=== PATIENT | female | born 1950 | race Caucasian/White ===

== ENCOUNTER 2018-04-27 06:00 | Inpatient (IN) | payer MEDICARE, OTHER ==
[2018-04-21 14:08] LABS: BASOPHILS % (AUTO) 0.5 % (0-1); EOSINOPHILS # (AUTO) 0.2 X10'3 (0-0.9); EOSINOPHILS % (AUTO) 2.4 % (0-6); LYMPHOCYTES # (AUTO) 1.8 X10'3 (1.1-4.8); LYMPHOCYTES % (AUTO) 22.1 % (21-51); MEAN CORPUSCULAR HEMOGLOBIN 29.6 PG (27.0-31.0); MEAN CORPUSCULAR HGB CONC 33.8 % (33.0-36.5); MEAN CORPUSCULAR VOLUME 87.7 FL (78-98); MEAN PLATELET VOLUME 7.6 FL (7.4-10.4); MONOCYTES # (AUTO) 0.5 X10'3 (0-0.9); MONOCYTES % (AUTO) 6.5 % (2-12); NEUTROPHILS # (AUTO) 5.6 X10'3 (1.8-7.7); NEUTROPHILS % (AUTO) 68.5 % (42-75); PRE OP HEMATOCRIT 45.2 % (35.0-45.0); PRE OP HEMOGLOBIN 15.3 g/dL (12.0-16.0); PRE OP PLATELET COUNT 316 X10'3 (140-440); RED BLOOD COUNT 5.16 X10'6 (4.20-5.60); RED CELL DISTRIBUTION WIDTH 13.7 % (11.5-14.5)
[2018-04-21 14:09] LABS: CLARITY,URINE CLEAR (Clear); COLOR,URINE YELLOW (Yellow); GLUCOSE, URINE NEGATIVE (Neg); KETONES,URINE TRACE mg/dl (Neg); LEUKOCYTE ESTERASE ,URINE TRACE (Neg); NITRITES, URINE NEGATIVE (Neg); OCCULT BLOOD,URINE NEGATIVE (Neg); PROTEIN,URINE NEGATIVE (Neg)
[2018-04-21 14:16] LABS: UA COLLECTION TYPE NON-SPECIFIED
[2018-04-21 14:17] LABS: BACTERIA,URINE FEW /HPF (Neg); MUCUS STRANDS FEW /LPF (Neg); RBC,URINE 0-2 /HPF (0-2); SQUAMOUS EPITHELIAL CELL,UR FEW /LPF (FEW); WBC,URINE 0-4 /HPF (0-4)
[2018-04-21 14:18] LABS: PRE OP PROTIME 9.9 SECONDS (9.0-12.0)
[2018-04-21 14:23] LABS: ALBUMIN 4.2 G/DL (3.4-5.0); ALBUMIN/GLOBULIN RATIO 1.1 (1.1-1.5); ALKALINE PHOSPHATASE 119 IU/L (46-116); BLOOD UREA NITROGEN 17 MG/DL (7-18); CALCIUM 8.8 MG/DL (8.5-10.1); CHLORIDE 101 MMOL/L (99-107); PRE OP ALT 24 U/L (30-65); PRE OP ANION GAP 11 (8-16); PRE OP AST 17 U/L (10-37); PRE OP BILIRUB, TOTAL 0.6 MG/DL (0.0-1.0); PRE OP GLUCOSE 108 MG/DL (70-104); PRE OP POTASSIUM 3.7 MMOL/L (3.4-5.1); PRE OP SODIUM 138 MMOL/L (135-145); TOTAL CARBON DIOXIDE 26.1 MMOL/L (24-32); TOTAL PROTEIN 8.2 G/DL (6.4-8.2); eGFR 55 ML/MIN
[~2018-04-27] VITALS: Ht 160 cm; Wt 83.0 kg
[2018-04-27] VITALS (23 sets, daily range): BP systolic 98–149; BP diastolic 55–86
[~2018-04-27 06:00] MED LIST: AMLO2.5T2 PO; Cefazolin 2GM/50ML dext iso,osmotic IVPB IV ONE; ESCI20TA38 PO; LOSA1TAB9 PO; OMEP40CA37 PO; acetaminophen 325mg tablet PO ONE; celeCOXIB 100mg capsule PO ONE; famotidine 20mg tablet PO ONE; gabapentin 300mg capsule PO ONE; metoclopramide 5 mg/ml inj IV ONE; oxyCODONE SR 10mg (sust. release) tab -2 tabs (20mg) PO ONE; ringers solution, lacted 1,000 ML IV SCH; tranexamic acid inj. 1,000 MG in normal saline 100ml IV soln 90 ML IV ONE; vancomycin inj 1,500 MG in normal saline 300ml IV soln IV ONE
[2018-04-27] MEDS ORDERED: ondansetron/PF 4mg/2ml inj IV PRN ×3 (07:00→10:50)
[2018-04-27] MEDS ORDERED: HYDROmorphone 1 mg/ml syringe IV PRN ×2 (07:00)
[2018-04-27] MEDS ORDERED: acetaminophen 325mg tablet PO PRN (07:00)
[2018-04-27] MEDS ORDERED: diphenhydrAMINE 25mg capsule PO PRN (07:00)
[2018-04-27] MEDS ORDERED: bisacodyl 10mg suppository rectal RC PRN (07:00)
[2018-04-27] MEDS ORDERED: magnesium hydroxide 30ml (MOM) UD suspension PO PRN (07:00)
[2018-04-27] MEDS ORDERED: HYDROCHLOROTHIAZIDE PO SCH (08:00)
[2018-04-27] MEDS ORDERED: LOSARTAN PO SCH (08:00)
[2018-04-27] MEDS ORDERED: ketorolac trometh. 30mg/ml inj. ONE (08:06)
[2018-04-27] MEDS ORDERED: epiNEPHrine 1 mg/ml inj ONE (08:06)
[2018-04-27] MEDS ORDERED: vancomycin 1,000mg inj ONE (08:06)
[2018-04-27] MEDS ORDERED: ROPIVAcaine 0.5% (5mg/ml) 30ml vial ONE (08:07)
[2018-04-27] MEDS ORDERED: cloNIDine hcl/PF 100mcg/ml inj ONE ×2 (08:07→08:39)
[2018-04-27] MEDS ORDERED: tetracaine 1% (10mg/ml) pres. free inj. ONE (08:39)
[2018-04-27] MEDS ORDERED: morphine sulfate /PF 0.5 MG/ML 10mL ampul ONE (08:44)
[2018-04-27] MEDS ORDERED: MIDAZolam 5mg/5ml vial ONE (08:44)
[2018-04-27] MEDS ORDERED: fentaNYL/PF 50MCG/1 ML 2ML syringe ONE (08:44)
[2018-04-27] MEDS ORDERED: dexamethasone sod phosphate 10mg/ml inj ONE (09:02)
[2018-04-27] MEDS ORDERED: propofol inj 20 ML IV ONE (09:40)
[2018-04-27] MEDS ORDERED: LIDOcaine 1%/PF 5ML 10 MG/ML VIAL ONE (09:40)
[2018-04-27] MEDS ORDERED: ringers solution, lacted 1,000 ML IV SCH (10:48)
[2018-04-27] MEDS ORDERED: naloxone 2mg/2ml inj 1.6 MG in normal saline 500ml IV soln 500 ML IV PRN (10:48)
[2018-04-27] MEDS ORDERED: HYDROmorphone inj. 0.5 MG/0.5 ML DISP.SYRIN IV PRN ×2 (10:50)
[2018-04-27] MEDS ORDERED: diphenhydrAMINE 50 mg/ml inj IV PRN (10:50)
[2018-04-27] MEDS ORDERED: furosemide 40mg/4ml inj ONE (10:58)
[2018-04-27] MEDS ORDERED: diphenhydrAMINE 50 mg/ml inj ONE (10:59)
[2018-04-27] MEDS ORDERED: ipratropium/albuterol 3ml nebule IH ONE (12:00)
[2018-04-27 12:50] LABS: ABG BASE EXCESS -3.8 mmol/L (-2.0-3.0); ABG OXYGEN SATURATION 89.8 % (95-98); ABG PCO2 (T) 55.4 mmHg (32.0-45.0); ABG PH (T) 7.255 (7.350-7.450); ABG PO2 (T) 66.8 mmHg (83-108); FCOHb 0.3 % (0.5-1.5); FLOW 5 L/min; FMetHb 0.3 % (0.3-1.12); FO2Hb 89.3 % (94-100)
[2018-04-27] MEDS ORDERED: naloxone 2mg/2ml inj 2 MG in normal saline 500ml IV soln 498 ML IV SCH (12:54)
[2018-04-27] MEDS: potassium cl 20mEq in 1/2 NS 1,000 ML IV SCH (14:23)
[2018-04-27] MEDS: ipratropium/albuterol 3ml nebule IH SCH ×3 (15:27→23:05)
[2018-04-27] MEDS: cefazolin/dext.iso 2gm/50ml 50 ML IV SCH (15:58)
[2018-04-27] MEDS: gabapentin 300mg capsule PO SCH (20:32)
[2018-04-27] MEDS: sennosides 8.6mg tablet PO SCH (20:33)
[2018-04-27] MEDS: ascorbic acid 500mg tablet PO SCH (20:33)
[2018-04-28] MEDS: cefazolin/dext.iso 2gm/50ml 50 ML IV SCH (00:06)
[2018-04-28] MEDS: potassium cl 20mEq in 1/2 NS 1,000 ML IV SCH ×3 (00:13→16:41)
[2018-04-28 02:00] VITALS: BP 116/69
[2018-04-28] MEDS: ipratropium/albuterol 3ml nebule IH SCH (02:44)
[2018-04-28] MEDS: HYDROcodone/acetaminophen 10/325mg tab PO PRN ×5 (03:36→19:24)
[2018-04-28 05:09] LABS: BASOPHILS % (AUTO) 0.3 % (0-1); EOSINOPHILS # (AUTO) 0.2 X10'3 (0-0.9); EOSINOPHILS % (AUTO) 1.6 % (0-6); HEMATOCRIT 32.9 % (35.0-45.0); HEMOGLOBIN 11.1 g/dl (12.0-16.0); LYMPHOCYTES # (AUTO) 0.6 X10'3 (1.1-4.8); LYMPHOCYTES % (AUTO) 5.3 % (21-51); MEAN CORPUSCULAR HEMOGLOBIN 29.5 PG (27.0-31.0); MEAN CORPUSCULAR HGB CONC 33.8 % (33.0-36.5); MEAN CORPUSCULAR VOLUME 87.2 FL (78-98); MEAN PLATELET VOLUME 7.9 FL (7.4-10.4); MONOCYTES # (AUTO) 0.6 X10'3 (0-0.9); MONOCYTES % (AUTO) 5.4 % (2-12); NEUTROPHILS # (AUTO) 9.4 X10'3 (1.8-7.7); NEUTROPHILS % (AUTO) 87.4 % (42-75); PLATELET COUNT 227 X10'3 (140-440); RED BLOOD COUNT 3.78 X10'6 (4.20-5.60); RED CELL DISTRIBUTION WIDTH 13.4 % (11.5-14.5); WHITE BLOOD COUNT 10.8 X10'3 (4.5-11.0)
[2018-04-28 05:41] LABS: ANION GAP 9 (8-16); CHLORIDE 105 MMOL/L (99-107); POTASSIUM 3.5 MMOL/L (3.5-5.1); SODIUM 138 MMOL/L (135-145); TOTAL CARBON DIOXIDE 24.1 MMOL/L (24-32)
[2018-04-28 06:00] VITALS: BP 114/63
[2018-04-28] MEDS: aspirin 325mg tablet PO SCH (07:47)
[2018-04-28] MEDS: multivitamins, therapeutics tablet PO SCH (07:47)
[2018-04-28] MEDS: ascorbic acid 500mg tablet PO SCH ×2 (07:48→20:42)
[2018-04-28] MEDS: amLODIPine 2.5mg tablet PO SCH (07:49)
[2018-04-28] MEDS: gabapentin 300mg capsule PO SCH ×3 (07:50→20:41)
[2018-04-28] MEDS: pantoprazole 40mg Tablet.DR PO SCH (07:52)
[2018-04-28] MEDS: citalopram 20mg tablet PO SCH (07:52)
[2018-04-28] MEDS ORDERED: HYDROchlorothiazide 12.5mg capsule PO SCH (08:00)
[2018-04-28] MEDS ORDERED: losartan 50mg tablet PO SCH (08:00)
[2018-04-28] MEDS: HYDROchlorothiazide 12.5mg capsule PO SCH (08:44)
[2018-04-28] MEDS: losartan 50mg tablet PO SCH (08:46)
[2018-04-28] MEDS: diphenhydrAMINE 25mg capsule PO PRN ×2 (08:50→20:47)
[2018-04-28 10:00] VITALS: BP 123/73
[2018-04-28 14:00] VITALS: BP 118/55
[2018-04-28 18:00] VITALS: BP 142/55
[2018-04-28] MEDS: sennosides 8.6mg tablet PO SCH (20:42)
[2018-04-28] MEDS: celeCOXIB 100mg capsule PO SCH (20:42)
[2018-04-28 22:00] VITALS: BP 108/53
[2018-04-29 02:00] VITALS: BP 108/53
[2018-04-29] MEDS: HYDROcodone/acetaminophen 10/325mg tab PO PRN ×4 (05:11→20:56)
[2018-04-29 06:00] VITALS: BP 105/52
[2018-04-29 06:03] LABS: BASOPHILS % (AUTO) 0.4 % (0-1); EOSINOPHILS # (AUTO) 0.8 X10'3 (0-0.9); EOSINOPHILS % (AUTO) 7.6 % (0-6); HEMATOCRIT 33.4 % (35.0-45.0); HEMOGLOBIN 11.3 g/dl (12.0-16.0); LYMPHOCYTES # (AUTO) 1.5 X10'3 (1.1-4.8); LYMPHOCYTES % (AUTO) 15.2 % (21-51); MEAN CORPUSCULAR HEMOGLOBIN 29.7 PG (27.0-31.0); MEAN CORPUSCULAR HGB CONC 33.9 % (33.0-36.5); MEAN CORPUSCULAR VOLUME 87.6 FL (78-98); MONOCYTES # (AUTO) 0.7 X10'3 (0-0.9); MONOCYTES % (AUTO) 7.1 % (2-12); NEUTROPHILS % (AUTO) 69.7 % (42-75); PLATELET COUNT 221 X10'3 (140-440); RED BLOOD COUNT 3.81 X10'6 (4.20-5.60); RED CELL DISTRIBUTION WIDTH 13.8 % (11.5-14.5)
[2018-04-29] MEDS: amLODIPine 2.5mg tablet PO SCH ×2 (08:00→08:01)
[2018-04-29] MEDS: potassium cl 20mEq in 1/2 NS 1,000 ML IV SCH (08:00)
[2018-04-29] MEDS: losartan 50mg tablet PO SCH ×2 (08:00→08:01)
[2018-04-29] MEDS: HYDROchlorothiazide 12.5mg capsule PO SCH ×2 (08:00→08:01)
[2018-04-29] MEDS: multivitamins, therapeutics tablet PO SCH (08:01)
[2018-04-29] MEDS: aspirin 325mg tablet PO SCH (08:01)
[2018-04-29] MEDS: citalopram 20mg tablet PO SCH (08:01)
[2018-04-29] MEDS: celeCOXIB 100mg capsule PO SCH ×2 (08:02→20:55)
[2018-04-29] MEDS: gabapentin 300mg capsule PO SCH ×3 (08:02→20:55)
[2018-04-29] MEDS: ascorbic acid 500mg tablet PO SCH ×2 (08:02→20:55)
[2018-04-29] MEDS: pantoprazole 40mg Tablet.DR PO SCH (08:02)
[2018-04-29 10:00] VITALS: BP 115/54
[2018-04-29 18:00] VITALS: BP 104/58
[2018-04-29] MEDS: sennosides 8.6mg tablet PO SCH (20:55)
[2018-04-29 22:00] VITALS: BP 129/56
[2018-04-30] MEDS: HYDROcodone/acetaminophen 10/325mg tab PO PRN ×2 (04:42→10:07)
[2018-04-30 06:00] VITALS: BP 97/52
[2018-04-30] MEDS: celeCOXIB 100mg capsule PO SCH (07:59)
[2018-04-30] MEDS: pantoprazole 40mg Tablet.DR PO SCH (07:59)
[2018-04-30] MEDS: gabapentin 300mg capsule PO SCH (08:00)
[2018-04-30] MEDS: ascorbic acid 500mg tablet PO SCH (08:00)
[2018-04-30] MEDS: HYDROchlorothiazide 12.5mg capsule PO SCH (08:00)
[2018-04-30] MEDS: losartan 50mg tablet PO SCH (08:00)
[2018-04-30] MEDS: citalopram 20mg tablet PO SCH (08:00)
[2018-04-30] MEDS: amLODIPine 2.5mg tablet PO SCH (08:00)
[2018-04-30] MEDS: aspirin 325mg tablet PO SCH (08:00)
[2018-04-30] MEDS: multivitamins, therapeutics tablet PO SCH (08:00)
[2018-04-30 08:30] LABS: BASOPHILS % (AUTO) 0.3 % (0-1); EOSINOPHILS # (AUTO) 0.5 X10'3 (0-0.9); EOSINOPHILS % (AUTO) 6.7 % (0-6); HEMATOCRIT 31.3 % (35.0-45.0); HEMOGLOBIN 10.5 g/dl (12.0-16.0); LYMPHOCYTES # (AUTO) 0.8 X10'3 (1.1-4.8); LYMPHOCYTES % (AUTO) 11.7 % (21-51); MEAN CORPUSCULAR HEMOGLOBIN 29.7 PG (27.0-31.0); MEAN CORPUSCULAR HGB CONC 33.7 % (33.0-36.5); MEAN CORPUSCULAR VOLUME 88.1 FL (78-98); MEAN PLATELET VOLUME 7.6 FL (7.4-10.4); MONOCYTES # (AUTO) 0.5 X10'3 (0-0.9); MONOCYTES % (AUTO) 6.3 % (2-12); NEUTROPHILS # (AUTO) 5.4 X10'3 (1.8-7.7); PLATELET COUNT 213 X10'3 (140-440); RED BLOOD COUNT 3.55 X10'6 (4.20-5.60); RED CELL DISTRIBUTION WIDTH 13.9 % (11.5-14.5); WHITE BLOOD COUNT 7.3 X10'3 (4.5-11.0)
[2018-04-30 10:00] VITALS: BP 105/61
== END 2018-04-30 11:05 | DRG 470 ==
LOC: PAS IN 06:00 → EDSTATUS 10:00 → ORTHO 4S 13:40
PROVIDERS: ADMIT Orthopaedic Surgery; ATTEND Orthopaedic Surgery
PROC: 3E0T3BZ Introduction of Anesthetic Agent into Peripheral Nerves and Plexi, Percutaneous Approach (ICD-10-PCS; 2018-04-27)
PROC: 0SRC0J9 Replacement of Right Knee Joint with Synthetic Substitute, Cemented, Open Approach (ICD-10-PCS; principal; 2018-04-27 09:02)
DX: M17.11 Unilateral primary osteoarthritis, right knee (principal); D62 Acute posthemorrhagic anemia; F41.9 Anxiety disorder, unspecified; M21.161 Varus deformity, not elsewhere classified, right knee; E66.9 Obesity, unspecified; M25.761 Osteophyte, right knee; I10 Essential (primary) hypertension; K21.9 Gastro-esophageal reflux disease without esophagitis; Z79.899 Other long term (current) drug therapy; Z88.6 Allergy status to analgesic agent; Z88.8 Allergy status to other drugs, medicaments and biological substances; Z90.49 Acquired absence of other specified parts of digestive tract; Z90.710 Acquired absence of both cervix and uterus; Z98.49 Cataract extraction status, unspecified eye; Z68.32 Body mass index [BMI] 32.0-32.9, adult
CPT/HCPCS: 36415; 36600; 71045; 73560; 80051; 80053; 81001; 82803; 85018; 85025; 85610; 85730; 86885; 86900; 86901; 87070; 87088; 94640; 94760; 97110; 97116; 97162; 97530; A6449; A6455; A7000; C1713; C1758; C1776; J0171; J0690; J0735; J1100; J1200; J1885; J1940; J2001; J2250; J2274; J2310; J2704; J2765; J2795; J3010; J3370; J7030; J7120; Q0163

== ENCOUNTER 2019-06-07 15:06 | Emergency (ER) | payer MEDICARE, OTHER ==
[~2019-06-07] VITALS: Ht 162.6 cm; Wt 90.0 kg
[~2019-06-07 15:06] MED LIST changes: -Cefazolin 2GM/50ML dext iso,osmotic IVPB IV ONE; +OMEP40CA13 PO; -OMEP40CA37 PO; -acetaminophen 325mg tablet PO ONE; -celeCOXIB 100mg capsule PO ONE; -famotidine 20mg tablet PO ONE; -gabapentin 300mg capsule PO ONE; -metoclopramide 5 mg/ml inj IV ONE; -oxyCODONE SR 10mg (sust. release) tab -2 tabs (20mg) PO ONE; -ringers solution, lacted 1,000 ML IV SCH; -tranexamic acid inj. 1,000 MG in normal saline 100ml IV soln 90 ML IV ONE; -vancomycin inj 1,500 MG in normal saline 300ml IV soln IV ONE
[2019-06-07] MEDS ORDERED: TETanus/Pertussis (Acell)/Diphther VAC/PF (Tdap-Adult) 0.5ml syringe IM ONE (16:20)
[2019-06-07] MEDS ORDERED: LIDOcaine 1% w/EPI 1:200,000 injection 10mL vial IM ONE (16:20)
[2019-06-07] MEDS ORDERED: LIDOcaine 1% W/epiNEPHrine 1:200,000 10ml vial IJ ONE (16:25)
[2019-06-07] MEDS ORDERED: AMOX-422 PO (16:28)
[2019-06-07] MEDS ORDERED: IBUP-1984 PO (16:28)
[2019-06-07] MEDS ORDERED: ceFAZolin 1GM/D5W- ADD-VANTAGE 50 ML IV ONE (16:45)
[2019-06-07] MEDS ORDERED: HYDROcodone/acetaminophen 5mg/325mg tablet PO ONE (17:40)
[2019-06-07 19:39] VITALS: BP 109/72
== END 2019-06-07 19:51 | disposition home or self-care (01) ==
LOC: ER 15:07
DX: S62.637A Displaced fracture of distal phalanx of left little finger, initial encounter for closed fracture (principal); S61.217A Laceration without foreign body of left little finger without damage to nail, initial encounter; Z88.5 Allergy status to narcotic agent; Z79.899 Other long term (current) drug therapy; W54.0XXA Bitten by dog, initial encounter; Y93.89 Activity, other specified; Y92.89 Other specified places as the place of occurrence of the external cause; Y99.8 Other external cause status
CPT/HCPCS: 12001; 26755; 73140; 90471; 90715; 96365; 96366; 99284; J0690